=== PATIENT | male | born 2005 | race Hispanic/Latino ===

== ENCOUNTER 2024-01-19 00:07 | Emergency (ER) | payer OTHER ==
[~2024-01-19] VITALS: Ht 170.2 cm; Wt 81.6 kg
[2024-01-19] MEDS: KETOROLAC 30MG VIAL (30MG/ML) IM ONE (01:36)
[2024-01-19 01:50] VITALS: BP 127/76; PULSE 80; RESP 16; O2SAT 100
== END 2024-01-19 02:17 | disposition home or self-care (01) ==
LOC: EDH 00:07
DX: S91.332A Puncture wound without foreign body, left foot, initial encounter (principal); Z98.890 Other specified postprocedural states; X58.XXXA Exposure to other specified factors, initial encounter; Y93.89 Activity, other specified; Y92.89 Other specified places as the place of occurrence of the external cause; Y99.8 Other external cause status
CPT/HCPCS: 99283; 73630; 96372; J1885